=== PATIENT | female | born 1945 | race Caucasian/White ===

== ENCOUNTER → 2018-04-10 00:16 | Outpatient (CLI) | payer MEDICARE, SELFPAY ==
--- NOTE | 2018-04-10 12:45 | DI.REPORT_ITS ---
SYMPTOMS/DIAGNOSIS: INTERMITTENT RT GROIN PAIN, R10.31, CHRONIC RIGHT INGUINAL ULTRASOUND: Sonographic evaluation of the right inguinal region was performed. There does appear to be a fat and fluid containing reducible right inguinal hernia present. If further imaging is warranted, a CT scan of the pelvis may be obtained for further evaluation. IMPRESSION: Findings suggestive of a fat and fluid containing right inguinal hernia.
== END ==
DX: R10.31 Right lower quadrant pain (principal); K40.90 Unilateral inguinal hernia, without obstruction or gangrene, not specified as recurrent; G89.29 Other chronic pain
CPT/HCPCS: 76857

== ENCOUNTER → 2018-05-05 10:12 | Outpatient (CLI) | payer MEDICARE, SELFPAY | PROVIDERS: Visit Provider Surgery | DX: K40.90 Unilateral inguinal hernia, without obstruction or gangrene, not specified as recurrent (principal) | CPT/HCPCS: 99213 ==

== ENCOUNTER 2018-08-13 06:29 | Day surgery (SDC) | payer MEDICARE, SELFPAY ==
[2018-08-13] VITALS (8 sets, daily range): BP systolic 112–160; BP diastolic 63–89; PULSE 53–76; RESP 12–19; TEMP 36.2–36.8; O2SAT 95–100
--- NOTE | 2018-08-13 06:38 | PDOC.DSDIS_ITS ---
Discharge Plan Disposition Patient Disposition: HOME Condition: Good Discharge Details Reason For Visit: (R) INGUINAL HERNIA Attending Provider: Rosario Trevizo Primary Care Provider: Eve Landry Home Meds and New Rx's Prescriptions: Continue multivitamin [Daily Multiple] 1 EACH tablet 1 ea PO DAILY RF: 0 cholecalciferol (vitamin D3) [Vitamin D3] 2,000 UNIT capsule 2,000 unit PO DAILY RF: 0 acetaminophen [Tylenol] 325 MG tablet 650 mg PO Q6H PRN RF: 0 Magnesium Oxide [Mag-Oxide Magnesium] 200 MG Tablet PO DAILY RF: 0 iodine [Kelp (iodine)] 150 MCG tablet 150 mcg PO DAILY RF: 0 cyanocobalamin (vitamin B-12) 2,500 MCG tablet 1 tab PO DAILY RF: 0 vitamin B complex Tablet 1 tab PO DAILY RF: 0 Discharge Instructions Instructions: Open Herniorrhaphy (DC), Inguinal Hernia Repair (DC) Additional Instructions: Follow up: Dr. Trevizo on 08/28/18 at 9:00 am Please call if you develop: fevers >101.5 Nausea or Vomiting Redness and hot to the touch around the incisions Abdominal pain that is getting worse and not transient Activity: No lifting, pulling or pushing > 20 lb x 4 weeks Diet: Regular Medications: Tylenol 650 mg every 6 hours as needed Ibuprofen 600 mg every 6 hours as needed Other: May use Ice alternating with heat for pain and swelling May shower starting tomorrow Do not soak the incisions for 1 week 1. Because there will be medication in your system for the next 24 hours, you may feel a little sleepy. Your coordination will be affected. Therefore: a. Do not drive or operate dangerous equipment for 24 hours. b. Do not drink alcohol beverages for 24 hours (not even beer). c. Plan to go home and rest for the day. 2. Generally the only restriction on your activity is no lifting, pulling or pushing more then 20 lb for 4 weeks. You may feel fatigued for 2-4 weeks. 3 After you arrive home you may have a light meal and return to a normal diet as you can tolerate it without feeling sick to your stomach. 4. After surgery, you may feel pain or discomfort. Take the medications as prescribed. 5. If there are any questions regarding the findings of your procedure, please feel free to contact your doctor. 6. If you are unable to contact your doctor with a problem, contact the hospital at [phone]. 7. Continue all your regular medications unless directed otherwise. 8. You are being prescribed a Narcotic pain medication. Narcotic pain medications have an addiction potential for everyone. It is important that you take the medication as prescribed There is a limit on how many tablets we can prescribed, this has been decided by the state Please keep the medications in a secure place and do not let anyone know you have them at home If you have medication left over please discard them by crushing them in a little water and mixing in used coffee grounds or cat litter and putting in the trash. I understand the above instructions and have no questions. Signature of Patient or Responsible Adult Escort Date/Time Name of Responsible Adult Escort Signature of Nurse Date/Time Referrals: Rosario Trevizo MD [ [facility] STAFF PHYSICIAN] - 08/28/18 9:00 am Activity:: No lifting, pulling or pushing >20 lb x 4 weeks Diet:: As Tolerated DS: Diagnosis Discharge Diagnosis (1) S/P inguinal hernia repair using synthetic patch: Status: Acute (2) Right inguinal hernia: Status: Acute
--- NOTE | 2018-08-13 06:42 | HPE_ITS ---
Date of service: 08/13/18 Time of Service: 06:41 Assessment and Plan (1) Right inguinal hernia: Current visit: No Status: Acute A\\ RIH reducible at this time Patient would like to wait to have surgery until August. Discussed signs and symptoms of incarceration/ strangulation and when to seak immediate help in the ED. P\\ RIH repair with mesh Risks, benefits and complictaions have been reviewed. Complications include but are not limited to bleeding, pain, injury to bowel, nerves or vessels, adverse reaction to the medications, and nerve pain. Questions were entertained and answered to their satisfaction and they wished to proceed. No guarantees were given or implied History of Present Illness Chief Complaint: Right inguinal hernia Narrative: Ms. Morgan is a healthy and pleasant 72 year old female who has noted a RIH for some time. Recently she noted discomfort and was unable to reduce. She went to see her Chiropractor who reduced the hernia and told her she needed to have it repaired. She denies any changes in bowel habits, Nausea or Vomiting. She reports no pain at this time. There have been no changes in her health since she was last seen in the office in April. Review of Systems ENT Denies dysphagia Cardiovascular Denies chest pain, Denies rapid heart rate, Denies irregular heart rhythm, Denies dyspnea and Denies dyspnea on exertion Respiratory Denies cough, Denies pain with cough, Denies dyspnea and Denies dyspnea on exertion Gastrointestinal Reports as per HPI, Denies abdominal pain, Denies change in bowel habits and Denies dysphagia PFSH Acute hearing loss of both ears Hx of colonic polyps Inguinal hernia of right side without obstruction or gangrene Family History Mother Essential hypertension Heart disease Hyperlipidemia Cerebrovascular accident Father Heart disease Brother No problems noted. Brother Heart disease Hyperlipidemia Brother No problems noted. Grandfather Neoplasm Grandfather No problems noted. Grandmother Non-smoker Neoplasm Grandmother No problems noted. S/P inguinal hernia repair using synthetic patch (Acute ~08/13/18) Colonoscopy - IV Sedation Family History Mother Essential hypertension Heart disease Hyperlipidemia Cerebrovascular accident Father Heart disease Brother No problems noted. Brother Heart disease Hyperlipidemia Brother No problems noted. Grandfather Neoplasm Grandfather No problems noted. Grandmother Non-smoker Neoplasm Grandmother No problems noted. Medical History Acute hearing loss of both ears Hx of colonic polyps Inguinal hernia of right side without obstruction or gangrene Social History Smoking/Tobacco Use Status: Never Surgical History S/P inguinal hernia repair using synthetic patch (Acute ~08/13/18) Colonoscopy - IV Sedation Social History Smoking/Tobacco Use Status: Never Meds Home Medications Medication Instructions Recorded Confirmed Type cyanocobalamin (vitamin B-12) 1 tab PO DAILY 03/19/17 08/10/18 History cholecalciferol (vitamin D3) 2,000 unit PO DAILY 11/12/17 08/10/18 History [Vitamin D3] multivitamin [Daily Multiple] 1 ea PO DAILY 11/12/17 08/10/18 History Magnesium Oxide [Mag-Oxide mg PO DAILY 03/04/18 History Magnesium] iodine [Kelp (iodine)] 150 mcg PO DAILY 03/04/18 08/10/18 History acetaminophen [Tylenol] 650 mg PO Q6H PRN tab-cap 03/05/18 08/10/18 History vitamin B complex 1 tab PO DAILY 08/10/18 08/10/18 History Allergies Allergy/AdvReac Type Severity Reaction Status Date / Time nickel Allergy Intermediate itchy rash Unverified 08/13/18 06:41 Exam Resp Effort & Inspection: normal respiratory effort Auscultation: clear to auscultation bilaterally Cardio Rate: regular rate Rhythm: regular rhythm Heart Sounds: no gallops, no murmurs and no rubs GI Inspection: normal to inspection Palpation: soft and hernia (Right inguinal hernia)
[2018-08-13] MEDS: Acetaminophen 325 MG TAB 650 MG PO (07:01)
[2018-08-13] MEDS: Lactated Ringers 1,000 ML 80 ML IV (07:01)
[2018-08-13] MEDS: Bupivacaine 0.25% Pres-Free 30 ML VIAL (07:41)
[2018-08-13] MEDS: Lidocaine 2% Multi-Dose 50 ML VIAL (07:51)
--- NOTE | 2018-08-13 08:34 | ROE_ITS ---
Date of service: 08/13/18 Time of Service: 07:45 Operative Note DATE OF PROCEDURE: 08/13/18 PRE-OP DIAGNOSIS: Right inguinal hernia POST-OP DIAGNOSIS: same PROCEDURE: Right inguinal hernia repair with mesh SURGEON: Rosario Trevizo CARDIAC NURSE PRACTITIONER: Meron Ledezma ANESTHESIA: GETA (Hari Hill CRNA / ASA 2) and other (TAP block done by Hari Hill CRNA) ESTIMATED BLOOD LOSS: 10 PATHOLOGY: none sent COMPLICATIONS: None Patient was transported to: PACU Patient's condition: stable Implants: BARD Mesh LOT [id number] Ref [id number] Indications: Mrs. Morgan is a pleasant 72-year-old female who was seen in the office for a right inguinal hernia which was starting to cause her some discomfort. Risks, benefits and complications were reviewed with her and she wished to proceed. No guarantees were given or implied Findings: Right direct hernia Procedure Description: After informed consent was obtained Ms. Morgan was taken to the operating room and placed in supine position on the operating room table. SCDs were applied and she was then placed under general anesthesia with an LMA. A timeout was done by anesthesia for a tap block on the right side. Please see separate note. Once the block was done the abdomen was prepped and draped in a standard surgical fashion with chlorhexidine. A second timeout was done and the patient's name, date of , surgery type and site, allergies to medications, antibiotic given, and DVT prophylaxis were all reviewed. Fire risk was also reviewed. At this 0.2% lidocaine was injected into the dermis in the right lower quadrant. Using a 10 blade a 4 cm incision was made. Dissection was done through Rowena's fascia down to the external oblique fascia. The external ring was identified and the external oblique fascia was opened sharply through the external ring. The round ligament was identified and was quite atrophied. The ilioinguinal nerve was identified and transected. A small opening was noted in the floor. There was a hernia sac mostly with fat noted. The hernia sac was opened no bowel was identified. The hernia sac was trimmed and the tail was suture ligated and placed back into the peritoneum. No indirect hernia was identified and no femoral hernia was noted. A 3 x 6 piece of flat mesh was cut to size and attached to the conjoined tendon using 2-0 Prolene. The mesh was then secured with a running 2-0 Prolene suture along the ileo-inguinal ligament and the shelving edge. The end of the mesh was placed underneath the external oblique fascia. The area was then irrigated with 30 cc of normal saline and dried. The external oblique fascia was reapproximated using 2-0 Vicryl. The Rowena's fascia was reapproximated using 3-0 Vicryl. The dermis was closed with a 4-0 Vicryl running suture. The skin was cleaned and dried and skin affix was applied. The patient was woken up the LMA was removed and she was taken back to recovery in stable condition. Sponge, instrument and needle counts were correct x2 at the end of the case. This note was dictated with Hanna. There may be some errors noted within this note.
[2018-08-13] MEDS: fentaNYL 100 MCG/2 ML VIAL IVP (09:10)
== END 2018-08-13 11:10 | disposition home or self-care (01) ==
PROVIDERS: Visit Provider Surgery
PROC: (CPT 49505; principal; 2018-08-13 07:30)
DX: K40.90 Unilateral inguinal hernia, without obstruction or gangrene, not specified as recurrent (principal)
CPT/HCPCS: 49505; NC; C1781; J0690; J1100; J1885; J2405; J3010

== ENCOUNTER 2024-10-18 13:52 | Emergency (ER) | payer MEDICARE, SELFPAY ==
[2024-10-18 13:57] VITALS: BP 131/74; PULSE 69; RESP 18; TEMP 36.6; O2SAT 97
--- NOTE | 2024-10-18 14:15 | ED.GENADUL_ITS ---
Discharge Plan Disposition Patient Disposition: Home Discharge Details Clinical Impression: Left ankle sprain Primary Care Provider: Charlotte Mcneil ED Provider: Tena Saunders Home Meds and New Rx's Prescriptions: No Action multivitamin [Daily Multiple] 1 EACH tablet 1 ea PO DAILY cholecalciferol (vitamin D3) [Vitamin D3] 2,000 UNIT capsule 2,000 unit PO DAILY acetaminophen [Tylenol] 325 MG tablet 650 mg PO Q6H PRN Patient Comments: 03/17/18 not taking. DL Magnesium Oxide [Mag-Oxide Magnesium] 200 MG tablet PO DAILY Patient Comments: unsure of dose Kelp (iodine) 150 MCG tablet 150 mcg PO DAILY cyanocobalamin (vitamin B-12) 2,500 MCG tablet 1 tab PO DAILY vitamin B complex Tablet 1 tab PO DAILY Discharge Instructions Instructions: Ankle Sprain ED Additional Instructions: There is no sign of fracture on your x-ray today. You most likely have an ankle sprain. Please use the ankle stabilizer lace up splint when you are up and about to help prevent you from rolling your ankle and injuring it further. Rest, ice for 15 to 20 minutes at a time, elevate above heart level, and use Tylenol/ibuprofen as needed for discomfort. HPI General Date/Time Provider Initiated Documentation: 10/18/24 14:05 . HPI Narrative: Janice is a 79 year old female who presents to the emergency department today for evaluation of left ankle pain she reports that she twisted her ankle when she was getting up from sitting 3 days ago, has been able to hobble on it, but says that it gives her discomfort. She would like to follow-up with her myofascial specialist, but was told she should rule out fracture first. She denies distal numbness/tingling, other injury, fracture to this ankle in the past. She has been using Tylenol and resting her foot at home. She is not on any anticoagulation. Denies significant Past medical history other than sprained ankles in the past. Physical exam reassuring. Mild tenderness just distal to the lateral malleolus. No obvious deformity, ecchymosis, lacerations/abrasions. Distal pulses intact, sensation grossly intact. No tenderness to palpation along tibia/fibula, knee, or foot. D/dx includes but is not limited to: Fracture, sprain, other soft tissue injury I independently interpreted the following tests: Left ankle x-ray, no obvious fractures or dislocations noted. This was confirmed by radiologist While in the emergency department, Magalis received a lace up ankle support and recommendation to follow-up with PCP/specialist as needed. Reviewed discharge instructions with patient, including symptomatic management and red flags indicating need for return to emergency care Related Data Home Medications ?Medication ?Instructions ?Recorded ?Confirmed cyanocobalamin (vitamin B-12) 1 tab PO DAILY 03/19/17 10/18/24 2,500 mcg tablet cholecalciferol (vitamin D3) 50 2,000 unit PO DAILY 11/12/17 10/18/24 mcg (2,000 unit) capsule (Vitamin D3) multivitamin (Daily Multiple 1 ea PO DAILY 11/12/17 10/18/24 tablet) Magnesium Oxide [Mag-Oxide mg PO DAILY 03/04/18 08/28/18 Magnesium] iodine 150 mcg tablet (Kelp 150 mcg PO DAILY 03/04/18 10/18/24 (iodine)) acetaminophen 325 mg tablet 650 mg PO Q6H PRN 03/05/18 10/18/24 (Tylenol) vitamin B complex 1 tab PO DAILY 08/10/18 10/18/24 Allergies Allergy/AdvReac Type Severity Reaction Status Date / Time nickel Allergy Intermediate itchy rash Verified 10/18/24 14:02 General Stated Complaint: Orthopedic SADE: 3 Review of Systems Narrative: See HPI Exam Const General: cooperative, healthy appearing, comfortable, no acute distress, well developed and well groomed Nutritional Appearance: average body habitus and well nourished Orientation: alert and oriented x3 Resp Effort & Inspection: normal respiratory effort and able to speak in complete sentences Skin General skin exam: no rashes or lesions noted Trauma: no lacerations or abrasions Wounds: no wounds Neuro Motor: muscle tone normal throughout Sensory Exam: no sensory deficits noted Extrem Left lower extremity: knee Details: normal to inspection, lower leg Details: normal to inspection, ankle Details: tenderness Location: of the lateral malleolus and swelling Details: laterally (mild); no warmth, no abrasions, no lacerations, no ecchymosis, no crepitus, no foreign bodies and no penetrating wound and foot Details: normal to inspection Course Vital Signs Vital signs: Vital Signs Temperature 36.6 C 10/18/24 13:57 Pulse 69 10/18/24 13:57 Respiratory Rate 18 10/18/24 13:57 Blood Pressure 131/74 10/18/24 13:57 Pulse Oximetry 97 10/18/24 13:57 Temperature 36.6 C 10/18/24 13:57 Temperature Source Oral 10/18/24 13:57 Pulse 69 10/18/24 13:57 Respiratory Rate 18 10/18/24 13:57 Blood Pressure 131/74 10/18/24 13:57 Pulse Oximetry 97 10/18/24 13:57 Oxygen Delivery Method Room Air 10/18/24 13:57 Oxygen Flow Rate 0 10/18/24 13:57 Pain Level 5 10/18/24 13:57 Medical Decision Making Imaging Data Radiologic Study: Radiologist's impression: Exam(s) XR ANKLE LT COMPLETE EXAM: XR ANKLE LT COMPLETE CLINICAL HISTORY: twisting injury, lateral ankle pain TECHNIQUE: 2D digital imaging was performed. Three views. COMPARISON: No exams were available for comparison FINDINGS: BONES: No acute fracture is present. No bony destructive lesion is seen. Tiny heel spurs JOINTS:The ankle mortise is normally aligned. SOFT TISSUE: Mild soft tissue swelling. Mild vascular calcifications. IMPRESSION: No evidence of fracture or ankle mortise widening. Quality:SDOH Health Related Social Needs: No Data to Display PFSH All Active Problems (Updated 10/18/24 @ 15:15 by Tena Traore) Left ankle sprain (Acute) Right inguinal hernia (Acute) S/P inguinal hernia repair using synthetic patch (Acute ~08/13/18) Tubular adenoma (Acute 07/17/12) Acute hearing loss of both ears (Acute 03/05/18) Medical History (Updated 10/18/24 @ 15:15 by Tena Traore) Hx of colonic polyps 2011 Inguinal hernia of right side without obstruction or gangrene Acute hearing loss of both ears Surgical History Colonoscopy - IV Sedation 2011 Family History Mother Essential hypertension Heart disease Hyperlipidemia Stroke Father Heart disease Brother No problems noted. Brother Heart disease Hyperlipidemia Brother No problems noted. Grandfather Neoplasm ESOPHAGEAL Grandfather No problems noted. Grandmother Non-smoker Neoplasm LUNG Grandmother No problems noted. Social History (Updated 08/28/18 @ 09:21 by Vivian James RN) Smoking/Tobacco Use Status: Former Tobacco Use Smoking risk assessment performed?: Yes Drug use: Occasionally Substance use type: marijuana Details: marijuana edibles Do you feel safe in your relationship?: Yes
--- NOTE | 2024-10-18 14:49 | DI.RAD_ITS ---
Exam(s) XR ANKLE LT COMPLETE EXAM: XR ANKLE LT COMPLETE CLINICAL HISTORY: twisting injury, lateral ankle pain TECHNIQUE: 2D digital imaging was performed. Three views. COMPARISON: No exams were available for comparison FINDINGS: BONES: No acute fracture is present. No bony destructive lesion is seen. Tiny heel spurs JOINTS:The ankle mortise is normally aligned. SOFT TISSUE: Mild soft tissue swelling. Mild vascular calcifications. IMPRESSION: No evidence of fracture or ankle mortise widening. DATA REPOSITORY: RADIATION DOSE DELIVERED:
[2024-10-18 15:41] VITALS: BP 123/76; PULSE 68; RESP 18; O2SAT 95
--- NOTE | 2024-10-27 16:06 | NUR.NOTE ---
Access chart to print the provider note for [facility] billing purposes. Nursing Note:
== END 2024-10-18 15:43 | disposition home or self-care (01) ==
PROVIDERS: Emergency Provider Nurse Practitioner Family; PCP Nurse Practitioner Family
DX: S93.401A Sprain of unspecified ligament of right ankle, initial encounter (principal); Z87.891 Personal history of nicotine dependence; X50.1XXA Overexertion from prolonged static or awkward postures, initial encounter; Y93.89 Activity, other specified; Y92.89 Other specified places as the place of occurrence of the external cause
CPT/HCPCS: 99283; 73610